=== PATIENT | male | born 1965 | race Caucasian/White ===

== ENCOUNTER 2022-06-29 16:07 | Emergency (ER) | payer OTHER ==
[~2022-06-29] VITALS: Ht 170.2 cm; Wt 68.0 kg
--- NOTE | 2022-06-29 16:37 | NUR ---
blood drawn and sent to lab
[2022-06-29 16:41] LABS: HEMATOCRIT 34.5 % (36.7-47.1); MEAN CORPUSCULAR HEMOGLOBIN 32.9 uug (23.8-33.4); MEAN CORPUSCULAR VOLUME 96.5 fL (73.0-96.2); PLATELET COUNT (AUTO) 292 K/uL (152-348)
[2022-06-29 17:11] LABS: CARBON DIOXIDE 23 mmol/L (21-32); CHLORIDE 102 mmol/L (98-107); CREATININE 0.9 mg/dL (0.6-1.3); GLUCOSE 75 mg/dL (74-106); POTASSIUM 4.5 mmol/L (3.5-5.1); UREA NITROGEN, BLOOD 21 mg/dL (7-18)
[2022-06-29 17:14] LABS: *BILIRUBIN,URIN NEGATIVE (NEGATIVE); *BLOOD, URINE NEGATIVE (NEGATIVE); *CLARITY,URINE CLEAR (CLEAR); *COLOR,URINE YELLOW (YELLOW); *KETONES,URINE NEGATIVE (NEGATIVE); *UROBILINOGEN,URINE 0.2 E.U./dl (NORMAL); LEUKOCYTE ESTERASE ,URINE NEGATIVE (NEGATIVE); NITRITE, URINE NEGATIVE (NEGATIVE); UGLUCOSE NEGATIVE (NEGATIVE)
[2022-06-29 17:17] LABS: ACETAMINOPHEN 25.4 ug/mL (10-30); ALANINE AMINOTRANSFERASE 20 U/L (16-63); ALKALINE PHOSPHATASE 71 U/L (50-136); ASPARTATE AMINOTRANSFERASE 13 U/L (15-37); BILIRUBIN,DIRECT 0.1 mg/dL (0.0-0.2); BILIRUBIN,TOTAL 0.8 mg/dL (0.2-1.0); TOTAL PROTEIN, SERUM 6.9 g/dL (6.4-8.2)
[2022-06-29 17:25] LABS: ETHANOL < 3 MG/DL (0-0)
[2022-06-29 17:27] LABS: *AMPHETAMINE, URINE NEGATIVE (NEGATIVE); *CANNABINOID, URINE NEGATIVE (NEGATIVE); *COCCAINE, URINE NEGATIVE (NEGATIVE); *OPIATE, URINE NEGATIVE (NEGATIVE); *PHENCYCLIDINE SCREEN,URINE NEGATIVE (NEGATIVE)
--- NOTE | 2022-06-29 18:15 | NUR ---
called Federica, needle punch operator on-call, L/Darion WATERS.
[2022-06-29] MEDS ORDERED: OLANZAPINE 5 MG TABLET PO ONE (19:30)
[2022-06-29] MEDS ORDERED: OLANZAPINE 5 MG TABLET ONE (19:44)
--- NOTE | 2022-06-29 20:00 | NUR ---
Federica Houser from [facility] here to eval patient.
--- NOTE | 2022-06-29 21:58 | NUR ---
CALLED [facility] AND SPOKE TO DEVIN WHO STATES THEY RECIEVED ALL PAPER WORKS NEEDED TO REVIEW CHART AND WILL CALL BACK WITH TRANSFER INFO
--- NOTE | 2022-06-30 01:00 | NUR ---
called [facility], spoke to january who states they bare working on patient going to [facility] and will call back with transfer info after verifying insurance.
--- NOTE | 2022-06-30 02:30 | NUR ---
JANUARY FROM [facility] CALLED BACK WITH TRANSFER INFOR. PATIENT ILEANA BE GOING TO [facility] [phone] EXT [phone] SRIVASTAVA THE ACCEPTING MD.
--- NOTE | 2022-06-30 02:39 | NUR ---
GAVE SBAR REPORT TO MARCE, NURSE FROM [facility].
--- NOTE | 2022-06-30 02:44 | NUR ---
CALLED [facility] ETA IS 90MINS.
--- NOTE | 2022-06-30 03:35 | NUR ---
Gave SBAR report to [facility] ambulance unit [id number] who will transport patient to [facility].
--- NOTE | 2022-06-30 03:46 | NUR ---
Patient refused to get on [facility] stating "I don't want to go there. I am signing out AMA." Dr Arredondo made aware of situation.
--- NOTE | 2022-06-30 03:50 | NUR ---
Patient does not wish to proceed with medical care recommended by Dr. Motta ). Patient given information related to possible complications, up to and including , which could occur as a result of leaving the hospital at this time. Patient verbalizes understanding of risks involved due to leaving against medical advice. Patient has signed AMA form.
== END 2022-06-30 03:51 | disposition left against medical advice (07) ==
LOC: ER 16:11
DX: F22 Delusional disorders (principal); Z20.822 Contact with and (suspected) exposure to COVID-19; H91.90 Unspecified hearing loss, unspecified ear; Z91.14 Patient's other noncompliance with medication regimen; R03.0 Elevated blood-pressure reading, without diagnosis of hypertension; D64.9 Anemia, unspecified; Z53.29 Procedure and treatment not carried out because of patient's decision for other reasons
CPT/HCPCS: 36415; 85025; A4663; G0480